=== PATIENT | male | born 2000 | race Caucasian/White ===

== ENCOUNTER 2020-04-11 00:27 | Emergency (ER) | payer BC ==
--- NOTE | 2020-04-11 02:21 | EDM.PDOC ---
ED HPI GENERAL MEDICAL PROBLEM - General Chief Complaint: Head Injury Stated Complaint: FALL; CONCUSION Time Seen by Provider: 04/11/20 00:40 Source of Information: Reports: Patient History Limitations: Reports: No Limitations - History of Present Illness INITIAL COMMENTS - FREE TEXT/NARRATIVE: pt c/o mild HAs and nausea also at times subjective feeling of memory loss for minor events over the past 2 days after he fell in pathtub and his his head, denies then LOC, denies any other associated sx or medical concerns, denies any recurrent trauma. - Related Data Allergies Allergy/AdvReac Type Severity Reaction Status Date / Time Penicillins Allergy Hives Verified 04/11/20 00:54 Home Meds: Home Meds Venlafaxine [Effexor XR] 75 mg PO DAILY 04/11/20 [History] Venlafaxine [Effexor XR] 150 mg PO DAILY 04/11/20 [History] Social & Family History - Tobacco Use Smoking Status *Q: Current Every Day Smoker Years of Tobacco use: 6 Packs/Tins Daily: 0.5 ED ROS GENERAL - Review of Systems Review Of Systems: See Below Constitutional: Reports: No Symptoms HEENT: Reports: No Symptoms Respiratory: Reports: No Symptoms Cardiovascular: Reports: No Symptoms GI/Abdominal: Reports: No Symptoms Musculoskeletal: Reports: No Symptoms ED EXAM, HEAD INJURY - Physical Exam Exam: See Below General Appearance: Alert, No Apparent Distress Head: Atraumatic, Normocephalic Eyes: Bilateral Eye: Normal Inspection Neck: Non-Tender Respiratory: No Respiratory Distress, Lungs Clear, Normal Breath Sounds Cardiovascular: Normal Peripheral Pulses, Regular Rate, Rhythm Back Exam: Normal Inspection, Full Range of Motion Extremities: Normal Inspection, Normal Range of Motion 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 Last Recorded V/S: Last Vital Signs Temp 36.6 C 04/11/20 00:35 Pulse 67 04/11/20 00:35 Resp 18 04/11/20 00:35 BP 163/88 H 04/11/20 00:35 Pulse Ox 100 04/11/20 00:35 - Orders/Labs/Meds Orders: Active Orders 24 hr Category Date Time Status Head wo Cont [CT] Stat Exams 04/11/20 00:49 Taken Labs: Laboratory Tests 04/11/20 04/11/20 Range/Units 01:00 01:00 WBC 6.9 (4.5-12.0) X10-3/uL RBC 4.91 (4.30-5.75) x10(6)uL Hgb 14.6 (13.5-17.8) g/dL Hct 43.2 (30.0-51.3) % MCV 87.8 (80-96) fL MCH 29.7 (27.7-33.6) pg MCHC 33.8 (32.2-35.4) g/dL RDW 12.3 (11.5-15.5) % Plt Count 231 (125-369) X10(3)uL MPV 10.2 (7.4-10.4) fL Neut % (Auto) 58.5 (46-82) % Lymph % (Auto) 32.3 (13-37) % [place] % (Auto) 6.9 (4-12) % Eos % (Auto) 1 (1.0-5.0) % Baso % (Auto) 1 (0-2) % Neut # (Auto) 4.0 (1.6-8.3) # Lymph # (Auto) 2.2 (0.6-5.0) # [place] # (Auto) 0.5 (0.0-1.3) # Eos # (Auto) 0.1 (0.0-0.8) # Baso # (Auto) 0.1 (0.0-0.2) # Sodium 140 (135-145) mmol/L Potassium 3.6 (3.5-5.3) mmol/L Chloride 103 (100-110) mmol/L Carbon Dioxide 23 (21-32) mmol/L BUN 13 (7-18) mg/dL Creatinine 1.1 (0.70-1.30) mg/dL Est Cr Clr Drug Dosing TNP Estimated GFR (MDRD) > 60 (>60) BUN/Creatinine Ratio 11.8 (9-20) Glucose 116 (80-116) mg/dL Calcium 9.1 (8.6-10.2) mg/dL Total Bilirubin 0.7 (0.1-1.3) mg/dL AST 30 H (5-25) IU/L ALT 97 H (12-36) U/L Alkaline Phosphatase 61 (56-112) IU/L Total Protein 7.5 (6.0-8.0) g/dL Albumin 4.3 (3.5-5.2) g/dL Globulin 3.2 g/dL Albumin/Globulin Ratio 1.3 Departure - Departure Time of Disposition: 02:21 Disposition: Home, Self-Care 01 Clinical Impression: Head concussion - Discharge Information Instructions: Head Injury, Adult, [id number] Referrals: PCP,None [Primary Care Provider] - Forms: ED Department Discharge Care Plan Goals: Take Tylenol or Advil as needed for pain. Review information on head injury, rest as needed. Sepsis Event Note (ED) - Evaluation Sepsis Screening Result: No Definite Risk - Focused Exam Vital Signs: Vital Signs Temp Pulse Resp BP Pulse Ox 04/11/20 00:35 36.6 C 67 18 163/88 H 100 - My Orders Last 24 Hours: My Active Orders 04/11/20 00:49 Head wo Cont [CT] Stat - Assessment/Plan Last 24 Hours: My Active Orders 04/11/20 00:49 Head wo Cont [CT] Stat
== END 2020-04-11 02:15 | disposition home or self-care (01) ==
LOC: FB.ED 00:27
DX: S06.0X0A Concussion without loss of consciousness, initial encounter (principal); F17.210 Nicotine dependence, cigarettes, uncomplicated; Z88.0 Allergy status to penicillin; W18.2XXA Fall in (into) shower or empty bathtub, initial encounter; Y92.89 Other specified places as the place of occurrence of the external cause; Y99.0 Civilian activity done for income or pay
CPT/HCPCS: 36415; 70450; 80053; 85025; 99284-25